=== PATIENT | male | born 1950 | race Caucasian/White ===

== ENCOUNTER 2020-08-01 14:26 | Emergency (ER) | payer OTHER, BC ==
[2020-08-01 15:02] VITALS: BP 158/72; PULSE 84; TEMP 98.6; BMI 23.7
[2020-08-01 15:41] LABS: BASO % 0.8 % (0-2.0); EOS % 0.6 % (0-4.5); HEMATOCRIT 41.3 % (35.4-49); HEMOGLOBIN 13.7 GM/dL (11.7-16.9); LYMPH % 24.8 % (8-40); MCH 30.2 pg (25.7-33.7); MCHC 33.1 g/dl (32.0-35.9); MEAN CELL VOLUME 91.2 fl (80-96); MONO % 22.2 % (3.8-10.2); NEUT % 51.6 % (42.8-82.8); PLATELET COUNT 239 K/MM3 (134-434); RBC 4.53 M/mm3 (4.00-5.60); RDW 13.8 % (11.9-15.9); WHITE BLOOD COUNT 4.5 K/mm3 (4.0-10.0)
[2020-08-01 16:03] LABS: POTASSIUM 4.3 mmol/L (3.5-5.1)
[2020-08-01 16:06] LABS: BLOOD UREA NITROGEN 14.2 mg/dL (7-18)
[2020-08-01 16:10] LABS: CREATININE 0.8 mg/dL (0.55-1.3)
[2020-08-01 16:11] LABS: BILIRUBIN,TOTAL 0.4 mg/dL (0.2-1); TOT PROT 7.6 g/dl (6.4-8.2)
[2020-08-01 17:02] LABS: ANISOCYTOSIS 1+; MACROCYTOSIS 0; PLATELET ESTIMATE NORMAL
[2020-08-01] MEDS ORDERED: BAMLANIVIMAB 700 MG in SODIUM CHLORIDE 250 ML IVPB ONE (17:06)
== END 2020-08-01 19:43 | disposition home or self-care (01) ==
LOC: JCOVINFU 14:26
DX: U07.1 COVID-19 (principal)
CPT/HCPCS: 36415; 80053; 85025; 99284-25; M0239; Q0239

== ENCOUNTER 2022-04-30 05:29 | Day surgery (SDC) | payer OTHER, BC ==
[2022-04-26 14:42] VITALS: BMI 23.8
[2022-04-30] MEDS ORDERED: KETAMINE HCL 500 MG/10 ML VIAL ONE (07:12)
[2022-04-30 08:42] VITALS: TEMP 98
[2022-04-30 09:20] VITALS: BP 126/66; PULSE 64; RESP 18
== END 2022-04-30 09:55 | disposition home or self-care (01) ==
LOC: JASU-ENDO 05:29
PROVIDERS: ATTEND Internal Medicine Gastroenterology
PROC: 0DJD8ZZ Inspection of Lower Intestinal Tract, Via Natural or Artificial Opening Endoscopic (ICD-10-PCS; principal; 2022-04-30 08:00)
DX: Z12.11 Encounter for screening for malignant neoplasm of colon (principal); K57.30 Diverticulosis of large intestine without perforation or abscess without bleeding; K63.89 Other specified diseases of intestine; K64.8 Other hemorrhoids